=== PATIENT | male | born 1945 | race Two or more races ===

== ENCOUNTER → 2017-04-07 | Outpatient (CLI) | payer MEDICARE ==
[~2017-04-07] MED LIST: ALBI30PE SC; AMLO5TAB2 PO; AMLO5TAB4 PO; BACL-19 PO; CARV-39 PO; CLON0.1T PO; DULO30CA2 PO; HYDR25TA6 PO; INSU100C5 SQ-INSULIN; INSU100I28 SC; IRBE300T16 PO; MELO15TA6 PO; METF100010 PO; OMEP-110 PO; OXYC5CAP4 PO; PIOG15TA9 PO; TORS10TA4 PO
[2017-04-07 09:33] LABS: BLOOD UREA NITROGEN 16 mg/dL (7-18)
[2017-04-07 09:37] LABS: ASPARTATE AMINO TRANSFERASE 11 U/L (15-37)
[2017-04-08 11:06] LABS: CREATININE URINE 128.9 mg/dL (Not Estab.)
== END | disposition home or self-care (01) ==
LOC: LAB 09:02
PROVIDERS: ATTEND Nurse Practitioner
DX: E78.5 Hyperlipidemia, unspecified (principal); I12.9 Hypertensive chronic kidney disease with stage 1 through stage 4 chronic kidney disease, or unspecified chronic kidney disease; E11.22 Type 2 diabetes mellitus with diabetic chronic kidney disease; N18.3 Chronic kidney disease, stage 3 (moderate)
CPT/HCPCS: 36415; 80053; 80061; 82043; 82570; 83036; 85025